=== PATIENT | male | born 1970 | race Caucasian/White ===

== ENCOUNTER 2020-08-29 14:19 | Emergency (ER) | payer MEDICAID ==
[~2020-08-29] VITALS: Ht 182.9 cm; Wt 154.6 kg
--- NOTE | 2020-08-29 14:58 | NUR ---
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
--- NOTE | 2020-08-29 15:17 | NUR ---
PT WITH NON HEALING CHRONIC (2YRS) WOUNDS TO BOTTOM OF LEFT FOOT. PT HERE TODAY STATING WOUNDS ARE GETTING WORSE AND PAIN INCREASING, WITH INCREASED DIFFICULTY IN WALKING. NEW INTACT FLUID FILLED BLISTER NOTED TO LATERAL EDGE OF WOUND ON THE TOE SIDE OF THE FOOT. 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 PT ASSESSMENT REV AND POC CARE DISCUSSSED. QUESTIONS ANSWERED. CALL LIGHT W/I REACH, VSS, NAD NOTED.
[2020-08-29] MEDS ORDERED: METF500T17 PO (15:21)
[2020-08-29] MEDS ORDERED: GABA-827 PO (15:21)
[2020-08-29] MEDS ORDERED: TRAZ-175 PO (15:21)
[2020-08-29] MEDS ORDERED: SODIUM CHLORIDE 0.9% 1,000ML IVBOLUS ONE (15:30)
[2020-08-29] MEDS ORDERED: SODIUM CHLORIDE FLUSH 10ML SYR IVF ONE (15:30)
--- NOTE | 2020-08-29 15:48 | NUR ---
PIV EST AND IVF INFUSING W/O DIFFICULTY. US TECH AT BEDSIDE. CALL LIGHT W/I REACH
[2020-08-29 15:57] LABS: BASOPHILS % (AUTO) 1 % (0-1); EOSINOPHILS % (AUTO) 2 % (1-7); LYMPHOCYTES % (AUTO) 25 % (22-44); MEAN CORPUSCULAR HEMOGLOBIN 30.3 pg (27.5-34.5); MEAN CORPUSCULAR HGB CONC 33.8 g/dL (33.2-36.2); MEAN PLATELET VOLUME 7.9 fL (7.4-10.4); MONOCYTES % (AUTO) 8 % (2-9); NEUTROPHILS % (AUTO) 65 % (42-75); PLATELET COUNT 285 x10^3/uL (130-400); RED BLOOD COUNT 5.32 x10^6/uL (4.38-5.82); RED CELL DISTRIBUTION WIDTH 13.6 % (9.4-14.8)
[2020-08-29 16:08] LABS: ALANINE AMINOTRANSFERASE 55 U/L (12-78); ALBUMIN 3.4 g/dL (3.4-5.0); ANION GAP 3 mmol/L (5-15); CALCIUM 8.8 mg/dL (8.5-10.1); CHLORIDE 107 mmol/L (98-107)
[2020-08-29 16:16] LABS: ALKALINE PHOSPHATASE 97 U/L (45-117); BILIRUBIN,TOTAL 0.3 mg/dL (0.2-1.0); CREATININE 1.47 mg/dL (0.7-1.3); TOTAL PROTEIN 7.4 g/dL (6.4-8.2)
--- NOTE | 2020-08-29 17:23 | NUR ---
BREAK RN: ALL RESULTS ARE BACK AT THIS TIME. CHART UP FOR RECHECK.
[2020-08-29 17:24] LABS: HCT (SEDRATE) 47.6 % (39.2-51.8)
[2020-08-29 18:54] VITALS: BP 125/78
[2020-08-29] MEDS ORDERED: NEOSPORIN OINT. PKT 1 PACKET ONE (19:21)
--- NOTE | 2020-08-29 19:56 | NUR ---
LEFT FOOT WOUNDS CLEANED WITH BETADINE AND WATER, BACITRACIN, ADAPTIC AND KERLEX DRESSING APPLIED. PT GIVEN REFERAL FOR WOUND CARE FOLLLOW UP. INST PT TO CALL WOUND CARE CLINIC TOMORROW AFTERNOON IF THEY HAVE NOT CONTACTED HIM BY THEN.
--- NOTE | 2020-08-29 19:58 | NUR ---
Patient/Caregiver given discharge instructions and they have confirmed that they understand the instructions. Patient ambulatory with steady gait. NAD, all questions answered appropriately, denies additional needs at this time. No personal belongings left in room after discharge.
== END 2020-08-29 19:59 | disposition home or self-care (01) ==
LOC: ED 14:49
DX: E11.621 Type 2 diabetes mellitus with foot ulcer (principal); E11.22 Type 2 diabetes mellitus with diabetic chronic kidney disease; N18.2 Chronic kidney disease, stage 2 (mild)
CPT/HCPCS: 36415; 73630; 80053; 85025; 85651; 86140; 87040; 93970; 96360; 99285; J7030

== ENCOUNTER 2020-09-11 07:38 | Outpatient (CLI) | payer MEDICAID ==
[~2020-09-11 07:38] MED LIST: GABA-827 PO; METF500T17 PO; TRAZ-175 PO
== END 2020-09-11 23:59 | disposition home or self-care (01) ==
LOC: WOUND 07:38
PROVIDERS: ATTEND Internal Medicine
DX: E11.621 Type 2 diabetes mellitus with foot ulcer (principal); L97.522 Non-pressure chronic ulcer of other part of left foot with fat layer exposed; E11.40 Type 2 diabetes mellitus with diabetic neuropathy, unspecified; E11.22 Type 2 diabetes mellitus with diabetic chronic kidney disease; N18.2 Chronic kidney disease, stage 2 (mild); G89.29 Other chronic pain; F17.210 Nicotine dependence, cigarettes, uncomplicated; L84 Corns and callosities; E66.01 Morbid (severe) obesity due to excess calories; Z68.42 Body mass index [BMI] 45.0-49.9, adult; Z86.718 Personal history of other venous thrombosis and embolism
CPT/HCPCS: 11042; 99215

== ENCOUNTER 2020-09-18 09:08 | Outpatient (CLI) | payer MEDICAID | END 2020-09-18 23:59 | disposition home or self-care (01) | LOC: WOUND 09:08 | PROVIDERS: ATTEND Internal Medicine | DX: E11.621 Type 2 diabetes mellitus with foot ulcer (principal); L97.521 Non-pressure chronic ulcer of other part of left foot limited to breakdown of skin; L84 Corns and callosities; E11.40 Type 2 diabetes mellitus with diabetic neuropathy, unspecified; E11.22 Type 2 diabetes mellitus with diabetic chronic kidney disease; N18.2 Chronic kidney disease, stage 2 (mild); G89.29 Other chronic pain; F17.210 Nicotine dependence, cigarettes, uncomplicated; E66.01 Morbid (severe) obesity due to excess calories; Z68.42 Body mass index [BMI] 45.0-49.9, adult; Z86.718 Personal history of other venous thrombosis and embolism | CPT/HCPCS: 97597 ==

== ENCOUNTER 2020-09-25 13:15 | Outpatient (CLI) | payer MEDICAID | END 2020-09-25 23:59 | disposition home or self-care (01) | LOC: WOUND 13:15 | PROVIDERS: ATTEND Internal Medicine | DX: E11.621 Type 2 diabetes mellitus with foot ulcer (principal); L97.522 Non-pressure chronic ulcer of other part of left foot with fat layer exposed; L84 Corns and callosities; E11.40 Type 2 diabetes mellitus with diabetic neuropathy, unspecified; E11.22 Type 2 diabetes mellitus with diabetic chronic kidney disease; N18.2 Chronic kidney disease, stage 2 (mild); G89.29 Other chronic pain; F17.210 Nicotine dependence, cigarettes, uncomplicated; E66.01 Morbid (severe) obesity due to excess calories; Z68.42 Body mass index [BMI] 45.0-49.9, adult; Z86.718 Personal history of other venous thrombosis and embolism | CPT/HCPCS: 11042 ==

== ENCOUNTER 2020-10-02 11:32 | Outpatient (CLI) | payer MEDICAID | END 2020-10-02 23:59 | disposition home or self-care (01) | LOC: WOUND 11:32 → RAD 23:59 | PROVIDERS: ATTEND Internal Medicine | DX: E11.621 Type 2 diabetes mellitus with foot ulcer (principal) ==

== ENCOUNTER 2020-10-09 10:58 | Outpatient (CLI) | payer MEDICAID | END 2020-10-09 23:59 | disposition home or self-care (01) | LOC: WOUND 10:58 | PROVIDERS: ATTEND Internal Medicine | DX: L84 Corns and callosities (principal); E11.40 Type 2 diabetes mellitus with diabetic neuropathy, unspecified; E11.22 Type 2 diabetes mellitus with diabetic chronic kidney disease; N18.2 Chronic kidney disease, stage 2 (mild); G89.29 Other chronic pain; F17.210 Nicotine dependence, cigarettes, uncomplicated; E66.01 Morbid (severe) obesity due to excess calories; Z68.42 Body mass index [BMI] 45.0-49.9, adult; Z86.718 Personal history of other venous thrombosis and embolism | CPT/HCPCS: 99213 ==